=== PATIENT | male | born 1950 | race Caucasian/White ===

== ENCOUNTER 2017-11-28 07:06 | Day surgery (SDC) | payer MEDICARE ==
[2017-11-28] MEDS ORDERED: BUSP5TAB PO (09:07)
[2017-11-28] MEDS ORDERED: METF1000 PO (09:07)
[2017-11-28] MEDS ORDERED: ROSU20 PO (09:07)
[2017-11-28] MEDS ORDERED: CARD180C5 PO (09:07)
[2017-11-28] MEDS ORDERED: SITA100T PO (09:07)
[2017-11-28] MEDS ORDERED: APIX5TAB PO (09:07)
--- NOTE | 2017-11-28 09:28 | MR ---
cc: Semaj Roberts MD, Alan S MD DATE: 11/28/2017 DATE OF PROCEDURE:. 11/28/2017 INDICATION: Atrial fibrillation diagnosis. PROCEDURE PERFORMED: Loop recorder insertion. DESCRIPTION OF PROCEDURE: The patient was brought to the Doc Unit in the postabsorptive state. After informed consent was obtained, a [employer] LINQ loop recorder was inserted subcutaneously to the left chest. The patient tolerated the procedure well without any apparent complications. Tachybrady pause and atrial fibrillation detection was enabled. The initial R-wave was 0.27 millivolts. The serial number was [id number]. Semaj Roberts MD EFREN/OMAR , 09:09 AM , 09:26 AM
[2017-11-28] MEDS ORDERED: VANCOMYCIN 1000 MG/NS 250 ML IV SCH ×2 (09:45)
[2017-11-28] MEDS ORDERED: CHLORHEXIDINE GLUCONATE 2 % 1 PACK (2 CLOTHS) TOPICAL SCH (09:45)
[2017-11-28] MEDS ORDERED: MUPIROCIN 2% OINT 1 APPLIC/GM SYR NASAL SCH (09:45)
[2017-11-28] MEDS ORDERED: POVIDONE IODINE 5% (ANTISEPSIS KIT) 4 APPLICATIONS EACH NARE SCH (09:45)
[2017-11-28] MEDS ORDERED: NS 1000 ML IV SCH (10:00)
== END 2017-11-28 09:45 | disposition home or self-care (01) ==
LOC: HDOC 07:06 → HDIC 07:06 → HDOC 09:45
PROVIDERS: ATTEND Nuclear Medicine Nuclear Cardiology
DX: I48.91 Unspecified atrial fibrillation (principal)
CPT/HCPCS: 33282; C1764; J3370; J7050